=== PATIENT | male | born 1940 | race Asian ===

== ENCOUNTER 2023-10-19 14:26 | Inpatient (IN) | payer OTHER, MEDICAID ==
[~2023-10-19] VITALS: Ht 175.3 cm; Wt 59.9 kg
[2023-10-19 14:31] VITALS: BP 174/78; PULSE 89; RESP 21; TEMP 97.7; O2SAT 98
[2023-10-19] MEDS ORDERED: DEXTROSE 50% 50 ML SYR IVP ONE (14:35)
[2023-10-19 15:11] LABS: BASOPHILS # (AUTO) 0.1 K/uL (0.00-0.22); BASOPHILS % (AUTO) 1.1 % (0.0-2.0); EOSINOPHILS # (AUTO) 0.1 K/uL (0-0.4); EOSINOPHILS % (AUTO) 0.6 % (0.0-4.0); HEMATOCRIT 33.2 % (36-52); HEMOGLOBIN 11.5 g/dL (12.0-18.0); LYMPHOCYTES # (AUTO) 1.6 K/uL (2.0-11.5); LYMPHOCYTES % (AUTO) 17.1 % (20.5-51.1); MEAN CORPUSCULAR HEMOGLOBIN 31 pg (27-31); MEAN CORPUSCULAR HGB CONC 35 g/dL (33-37); MEAN CORPUSCULAR VOLUME 87.8 fL (80-94); MONOCYTES # (AUTO) 0.6 K/uL (0.8-1.0); MONOCYTES % (AUTO) 6.5 % (1.7-9.3); NEUTROPHILS # (AUTO) 7.1 K/uL (1.8-7.7); NEUTROPHILS % (AUTO) 74.7 % (42.2-75.2); PLATELET COUNT (AUTO) 333 K/uL (140-450); RED BLOOD CELL COUNT(AUTO) 3.79 MIL/uL (4.20-6.10); RED CELL DISTRIBUTION WIDTH 13.7 % (11.6-13.7); WHITE BLOOD COUNT (AUTO) 9.4 K/uL (4.8-10.8)
[2023-10-19 15:32] LABS: ALANINE AMINOTRANSFERASE 116 U/L (12-78); ALBUMIN 2.6 g/dL (3.4-5.0); ALKALINE PHOSPHATASE 296 U/L (50-136); ASPARTATE AMINOTRANSFERASE 32 U/L (15-37); BILIRUBIN,DIRECT 0.3 mg/dL (0.0-0.3); CREATINE KINASE, TOTAL 38 U/L (39-308); LIPASE 72 U/L (16-77); TOTAL BILIRUBIN 0.6 mg/dL (0.0-1.0); TOTAL PROTEIN, SERUM 7.9 g/dL (6.4-8.2)
[2023-10-19 15:36] LABS: LACTIC ACID 1.1 mmol/L (0.4-2.0)
[2023-10-19 15:43] LABS: ANION GAP 14.7 (8-16); CALCIUM 8.8 mg/dL (8.5-10.1); CARBON DIOXIDE 24.6 mmol/L (21-32); CHLORIDE 102 mmol/L (98-107); CREATININE 2.2 mg/dL (0.6-1.3); POTASSIUM 4.3 mmol/L (3.5-5.1); SODIUM SERUM 137 mmol/L (136-145); UREA NITROGEN, BLOOD 24 mg/dL (7-18)
[2023-10-19 15:45] LABS: GLUCOSE 37 mg/dL (74-106)
[2023-10-19 15:49] LABS: INR 1.54 (0.8-1.2); PARTIAL THROMBOPLASTIN TIME 30.7 secs (22-35.6); PROTHROMBIN TIME 15.9 secs (10.8-13.4)
[2023-10-19] MEDS ORDERED: DOCU-300 PO (16:52)
[2023-10-19] MEDS ORDERED: GLIM2TAB PO (16:52)
[2023-10-19] MEDS ORDERED: CALC-52 PO (16:52)
[2023-10-19] MEDS ORDERED: METF-1243 PO (16:52)
[2023-10-19] MEDS ORDERED: LINE600T10 PO (16:52)
[2023-10-19] MEDS ORDERED: CHOL100013 PO (16:52)
[2023-10-19] MEDS ORDERED: ASPI-1822 PO (16:52)
[2023-10-19] MEDS ORDERED: AMLO2.5T2 PO (16:52)
[2023-10-19] MEDS ORDERED: ATOR40TA40 PO (16:52)
[2023-10-19] MEDS ORDERED: FERR-13 PO (16:52)
[2023-10-19] MEDS ORDERED: SITA50TA3 PO (16:52)
[2023-10-19] MEDS ORDERED: BUS5 PO (16:52)
[2023-10-19] MEDS ORDERED: NUTR887L PO (16:52)
[2023-10-19] MEDS ORDERED: MULT-1305 PO (16:52)
[2023-10-19] MEDS ORDERED: ONDANSETRON 4 MG/2 ML VIAL IVP PRN (17:05)
[2023-10-19] MEDS ORDERED: MORPHINE SULFATE 2 MG/ML SYR IVP PRN (17:05)
[2023-10-19] MEDS ORDERED: MAG SULF 2000 MG/WATER PREMIX 50 ML IV PRN (17:05)
[2023-10-19] MEDS ORDERED: HYDROcodone/APAP 5/325 MG 1 TAB TAB PO PRN (17:05)
[2023-10-19] MEDS ORDERED: ACETAMINOPHEN 325 MG TAB PO PRN (17:05)
[2023-10-19] MEDS ORDERED: POLYETHYLENE GLYCOL 17 GM/PKT PO PRN (17:05)
[2023-10-19] MEDS ORDERED: POTASSIUM CHLORIDE 10 MEQ TABER PO PRN (17:05)
[2023-10-19] MEDS ORDERED: MELATONIN 3 MG TAB PO PRN (17:05)
[2023-10-19] MEDS ORDERED: INSULIN LISPRO SLIDING SCALE 100 UNITS/ML VIAL SUBQ PRN (17:10)
[2023-10-19] MEDS: LORazepam 1 MG TAB PO ONE (17:42)
[2023-10-19] MEDS: DEXTROSE 50% 50 ML SYR IVP ONE (18:20)
[2023-10-19] MEDS: NACL 0.9% 1,000 ML IV SCH (18:21)
[2023-10-19 20:00] VITALS: BP 162/67; PULSE 83; PULSE 88; RESP 19; TEMP 96.8; O2SAT 98
[2023-10-19] MEDS ORDERED: busPIRone 5 MG TAB PO SCH (21:00)
[2023-10-19] MEDS: LINEZOLID 600 MG TAB PO SCH (21:30)
[2023-10-19] MEDS: DOCUSATE SODIUM 100 MG GELCAP PO SCH (21:30)
[2023-10-19] MEDS: DEXTROSE 50% 50 ML SYR IVP PRN (21:36)
[2023-10-19] MEDS: BLOOD GLUCOSE MONITORING 1 DEV DEV FS SCH (21:44)
[2023-10-19] MEDS: DEXT 5% /NACL 0.9% 1,000 ML IV SCH (23:15)
[2023-10-20] VITALS (7 sets, daily range): BP systolic 110–191; BP diastolic 62–85; PULSE 62–105; RESP 18–19; TEMP 96.8–98.1; O2SAT 98–100
[2023-10-20] MEDS: hydrALAZINE 20 MG/ML VIAL IVP PRN (04:04)
[2023-10-20 05:34] LABS: BASOPHILS % (AUTO) 0.5 % (0.0-2.0); EOSINOPHILS # (AUTO) 0.1 K/uL (0-0.4); EOSINOPHILS % (AUTO) 1.5 % (0.0-4.0); HEMATOCRIT 30.3 % (36-52); HEMOGLOBIN 10.5 g/dL (12.0-18.0); LYMPHOCYTES # (AUTO) 1.7 K/uL (2.0-11.5); LYMPHOCYTES % (AUTO) 20.8 % (20.5-51.1); MEAN CORPUSCULAR HEMOGLOBIN 31 pg (27-31); MEAN CORPUSCULAR HGB CONC 35 g/dL (33-37); MEAN CORPUSCULAR VOLUME 88.1 fL (80-94); MONOCYTES # (AUTO) 0.7 K/uL (0.8-1.0); NEUTROPHILS # (AUTO) 5.8 K/uL (1.8-7.7); NEUTROPHILS % (AUTO) 69.2 % (42.2-75.2); PLATELET COUNT (AUTO) 298 K/uL (140-450); RED BLOOD CELL COUNT(AUTO) 3.45 MIL/uL (4.20-6.10); RED CELL DISTRIBUTION WIDTH 13.5 % (11.6-13.7); WHITE BLOOD COUNT (AUTO) 8.4 K/uL (4.8-10.8)
[2023-10-20 06:38] LABS: ALANINE AMINOTRANSFERASE 98 U/L (12-78); ALBUMIN 2.3 g/dL (3.4-5.0); ALKALINE PHOSPHATASE 251 U/L (50-136); ANION GAP 10.4 (8-16); ASPARTATE AMINOTRANSFERASE 29 U/L (15-37); CALCIUM 8.5 mg/dL (8.5-10.1); CARBON DIOXIDE 25.9 mmol/L (21-32); CHLORIDE 105 mmol/L (98-107); CREATININE 1.9 mg/dL (0.6-1.3); GLUCOSE 72 mg/dL (74-106); MAGNESIUM 2.2 mg/dL (1.8-2.4); PHOSPHORUS 3.7 mg/dL (2.5-4.9); POTASSIUM 4.3 mmol/L (3.5-5.1); SODIUM SERUM 137 mmol/L (136-145); TOTAL BILIRUBIN 0.6 mg/dL (0.0-1.0); TOTAL PROTEIN, SERUM 7.1 g/dL (6.4-8.2); UREA NITROGEN, BLOOD 19 mg/dL (7-18)
[2023-10-20] MEDS: ASPIRIN 81 MG TAB.CHEW PO SCH (08:34)
[2023-10-20] MEDS: FERROUS SULFATE 325 MG TABEC PO SCH (08:35)
[2023-10-20] MEDS: amLODIPine 5 MG TAB PO SCH (08:36)
[2023-10-20] MEDS: ATORVASTATIN 20 MG TAB PO SCH (08:41)
[2023-10-20] MEDS ORDERED: NON-FORMULARY ITEM (Atorvastatin Calcium 1 TAB) PO SCH (09:00)
[2023-10-20] MEDS ORDERED: AMLODIPINE BESYLATE 2.5 MG PO SCH (09:00)
[2023-10-20 20:18] LABS: APPEARANCE,URINE CLEAR (CLEAR); BILIRUBIN,URINE NEGATIVE (NEGATIVE); BLOOD, URINE NEGATIVE (NEGATIVE); COLOR,URINE YELLOW (YELLOW); LEUKOCYTE ESTERASE ,URINE NEGATIVE (NEGATIVE); NITRITE, URINE NEGATIVE (NEGATIVE); PROTEIN,URINE 2+ (NEGATIVE); UGLUCOSE 1+ (NEGATIVE); UROBILINOGEN,URINE 0.2 EU/dL (0.2 - 1)
[2023-10-21] VITALS: PULSE 122
[2023-10-21 04:08] VITALS: PULSE 102
[2023-10-21 05:50] LABS: BASOPHILS # (AUTO) 0.1 K/uL (0.00-0.22); BASOPHILS % (AUTO) 0.4 % (0.0-2.0); EOSINOPHILS % (AUTO) 0.1 % (0.0-4.0); HEMATOCRIT 31.2 % (36-52); HEMOGLOBIN 10.8 g/dL (12.0-18.0); LYMPHOCYTES # (AUTO) 1.4 K/uL (2.0-11.5); LYMPHOCYTES % (AUTO) 9.4 % (20.5-51.1); MEAN CORPUSCULAR HEMOGLOBIN 31 pg (27-31); MEAN CORPUSCULAR HGB CONC 35 g/dL (33-37); MEAN CORPUSCULAR VOLUME 88.1 fL (80-94); MONOCYTES # (AUTO) 0.8 K/uL (0.8-1.0); MONOCYTES % (AUTO) 5.3 % (1.7-9.3); NEUTROPHILS # (AUTO) 12.5 K/uL (1.8-7.7); NEUTROPHILS % (AUTO) 84.8 % (42.2-75.2); PLATELET COUNT (AUTO) 308 K/uL (140-450); RED BLOOD CELL COUNT(AUTO) 3.54 MIL/uL (4.20-6.10); RED CELL DISTRIBUTION WIDTH 13.7 % (11.6-13.7); WHITE BLOOD COUNT (AUTO) 14.7 K/uL (4.8-10.8)
[2023-10-21 05:57] LABS: ALANINE AMINOTRANSFERASE 973 U/L (12-78); ALBUMIN 2.3 g/dL (3.4-5.0); ALKALINE PHOSPHATASE 669 U/L (50-136); ANION GAP 10.3 (8-16); ASPARTATE AMINOTRANSFERASE 827 U/L (15-37); CALCIUM 8.4 mg/dL (8.5-10.1); CHLORIDE 103 mmol/L (98-107); CREATININE 2.2 mg/dL (0.6-1.3); GLUCOSE 218 mg/dL (74-106); MAGNESIUM 2.1 mg/dL (1.8-2.4); PHOSPHORUS 3.4 mg/dL (2.5-4.9); POTASSIUM 4.3 mmol/L (3.5-5.1); SODIUM SERUM 136 mmol/L (136-145); TOTAL BILIRUBIN 2.8 mg/dL (0.0-1.0); UREA NITROGEN, BLOOD 21 mg/dL (7-18)
[2023-10-21 08:00] VITALS: BP 152/66; PULSE 80; RESP 17; RESP 19; TEMP 98; O2SAT 97
[2023-10-21] MEDS: amLODIPine 5 MG TAB PO SCH (09:37)
[2023-10-21 12:00] VITALS: BP 166/68; PULSE 81; PULSE 85; RESP 19; TEMP 97; O2SAT 97
[2023-10-21 12:29] LABS: BASOPHILS # (AUTO) 0.1 K/uL (0.00-0.22); BASOPHILS % (AUTO) 0.7 % (0.0-2.0); EOSINOPHILS # (AUTO) 0.1 K/uL (0-0.4); EOSINOPHILS % (AUTO) 1.1 % (0.0-4.0); HEMATOCRIT 30.8 % (36-52); HEMOGLOBIN 10.9 g/dL (12.0-18.0); LYMPHOCYTES # (AUTO) 1.6 K/uL (2.0-11.5); LYMPHOCYTES % (AUTO) 13.6 % (20.5-51.1); MEAN CORPUSCULAR HEMOGLOBIN 31 pg (27-31); MEAN CORPUSCULAR HGB CONC 35 g/dL (33-37); MEAN CORPUSCULAR VOLUME 87.3 fL (80-94); MONOCYTES # (AUTO) 0.7 K/uL (0.8-1.0); NEUTROPHILS # (AUTO) 9.4 K/uL (1.8-7.7); NEUTROPHILS % (AUTO) 78.6 % (42.2-75.2); PLATELET COUNT (AUTO) 321 K/uL (140-450); RED BLOOD CELL COUNT(AUTO) 3.52 MIL/uL (4.20-6.10); RED CELL DISTRIBUTION WIDTH 13.9 % (11.6-13.7)
[2023-10-21 12:47] LABS: ALANINE AMINOTRANSFERASE 829 U/L (12-78); ALBUMIN 2.4 g/dL (3.4-5.0); ALKALINE PHOSPHATASE 672 U/L (50-136); ANION GAP 11.5 (8-16); ASPARTATE AMINOTRANSFERASE 527 U/L (15-37); CALCIUM 8.5 mg/dL (8.5-10.1); CARBON DIOXIDE 25.9 mmol/L (21-32); CHLORIDE 103 mmol/L (98-107); CREATININE 2.3 mg/dL (0.6-1.3); GLUCOSE 154 mg/dL (74-106); POTASSIUM 4.4 mmol/L (3.5-5.1); SODIUM SERUM 136 mmol/L (136-145); TOTAL BILIRUBIN 3.6 mg/dL (0.0-1.0); TOTAL PROTEIN, SERUM 7.1 g/dL (6.4-8.2); UREA NITROGEN, BLOOD 23 mg/dL (7-18)
[2023-10-21] MEDS: DEXT 5% / NACL 0.45% 1,000 ML IV SCH (14:26)
[2023-10-21 16:00] VITALS: BP 151/63; PULSE 70; PULSE 74; RESP 18; TEMP 97.8; O2SAT 97
[2023-10-21 20:00] VITALS: BP 147/89; PULSE 78; RESP 19; TEMP 97.6; O2SAT 94
[2023-10-22 04:00] VITALS: BP 175/86; PULSE 67; RESP 19; TEMP 97.8; O2SAT 96
[2023-10-22] MEDS: hydrALAZINE 20 MG/ML VIAL IVP PRN (04:18)
[2023-10-22 05:36] LABS: BASOPHILS # (AUTO) 0.1 K/uL (0.00-0.22); BASOPHILS % (AUTO) 0.8 % (0.0-2.0); EOSINOPHILS # (AUTO) 0.3 K/uL (0-0.4); EOSINOPHILS % (AUTO) 3.7 % (0.0-4.0); HEMATOCRIT 29.6 % (36-52); HEMOGLOBIN 10.4 g/dL (12.0-18.0); LYMPHOCYTES # (AUTO) 1.3 K/uL (2.0-11.5); LYMPHOCYTES % (AUTO) 15.8 % (20.5-51.1); MEAN CORPUSCULAR HEMOGLOBIN 31 pg (27-31); MEAN CORPUSCULAR HGB CONC 35 g/dL (33-37); MEAN CORPUSCULAR VOLUME 87.5 fL (80-94); MONOCYTES # (AUTO) 0.6 K/uL (0.8-1.0); NEUTROPHILS # (AUTO) 6.1 K/uL (1.8-7.7); NEUTROPHILS % (AUTO) 72.7 % (42.2-75.2); PLATELET COUNT (AUTO) 286 K/uL (140-450); RED BLOOD CELL COUNT(AUTO) 3.38 MIL/uL (4.20-6.10); RED CELL DISTRIBUTION WIDTH 13.9 % (11.6-13.7); WHITE BLOOD COUNT (AUTO) 8.4 K/uL (4.8-10.8)
[2023-10-22 06:22] LABS: ALANINE AMINOTRANSFERASE 554 U/L (12-78); ALBUMIN 2.2 g/dL (3.4-5.0); ALKALINE PHOSPHATASE 631 U/L (50-136); ANION GAP 12.2 (8-16); ASPARTATE AMINOTRANSFERASE 242 U/L (15-37); CALCIUM 8.5 mg/dL (8.5-10.1); CARBON DIOXIDE 22.8 mmol/L (21-32); CHLORIDE 103 mmol/L (98-107); GLUCOSE 159 mg/dL (74-106); MAGNESIUM 2.1 mg/dL (1.8-2.4); PHOSPHORUS 2.6 mg/dL (2.5-4.9); SODIUM SERUM 134 mmol/L (136-145); TOTAL BILIRUBIN 3.1 mg/dL (0.0-1.0); TOTAL PROTEIN, SERUM 6.7 g/dL (6.4-8.2); UREA NITROGEN, BLOOD 21 mg/dL (7-18)
[2023-10-22 07:51] VITALS: PULSE 82; RESP 20
[2023-10-22 08:00] VITALS: BP 140/71; PULSE 68; RESP 20; TEMP 96.5; O2SAT 96
[2023-10-22 12:00] VITALS: BP 142/68; PULSE 72; RESP 22; TEMP 98.2; O2SAT 97
[2023-10-22 16:00] VITALS: BP 134/76; PULSE 84; RESP 20; TEMP 97.2; O2SAT 98
[2023-10-22 20:00] VITALS: BP 158/76; PULSE 87; RESP 18; TEMP 97.9; O2SAT 97
[2023-10-22] MEDS: LORazepam 2 MG/ML VIAL IVP PRN (20:25)
[2023-10-23 04:00] VITALS: BP 146/79; PULSE 84; RESP 18; TEMP 98.1; O2SAT 96
[2023-10-23 06:18] LABS: BASOPHILS % (AUTO) 0.4 % (0.0-2.0); EOSINOPHILS # (AUTO) 0.4 K/uL (0-0.4); EOSINOPHILS % (AUTO) 4.9 % (0.0-4.0); HEMATOCRIT 29.8 % (36-52); HEMOGLOBIN 10.4 g/dL (12.0-18.0); LYMPHOCYTES # (AUTO) 1.5 K/uL (2.0-11.5); LYMPHOCYTES % (AUTO) 17.4 % (20.5-51.1); MEAN CORPUSCULAR HEMOGLOBIN 31 pg (27-31); MEAN CORPUSCULAR HGB CONC 35 g/dL (33-37); MEAN CORPUSCULAR VOLUME 87.7 fL (80-94); MONOCYTES # (AUTO) 0.6 K/uL (0.8-1.0); MONOCYTES % (AUTO) 7.6 % (1.7-9.3); NEUTROPHILS # (AUTO) 5.9 K/uL (1.8-7.7); NEUTROPHILS % (AUTO) 69.7 % (42.2-75.2); PLATELET COUNT (AUTO) 300 K/uL (140-450); RED CELL DISTRIBUTION WIDTH 13.5 % (11.6-13.7); WHITE BLOOD COUNT (AUTO) 8.5 K/uL (4.8-10.8)
[2023-10-23 06:44] LABS: ALANINE AMINOTRANSFERASE 377 U/L (12-78); ALBUMIN 2.3 g/dL (3.4-5.0); ALKALINE PHOSPHATASE 648 U/L (50-136); ANION GAP 12.7 (8-16); ASPARTATE AMINOTRANSFERASE 102 U/L (15-37); CALCIUM 8.6 mg/dL (8.5-10.1); CARBON DIOXIDE 24.5 mmol/L (21-32); CHLORIDE 101 mmol/L (98-107); CREATININE 1.9 mg/dL (0.6-1.3); GLUCOSE 128 mg/dL (74-106); MAGNESIUM 2.1 mg/dL (1.8-2.4); PHOSPHORUS 3.5 mg/dL (2.5-4.9); POTASSIUM 4.2 mmol/L (3.5-5.1); SODIUM SERUM 134 mmol/L (136-145); TOTAL BILIRUBIN 1.2 mg/dL (0.0-1.0); UREA NITROGEN, BLOOD 19 mg/dL (7-18)
[2023-10-23 08:00] VITALS: BP 184/75; PULSE 91; RESP 20; TEMP 98.1; O2SAT 96
[2023-10-23 11:57] VITALS: BP 148/60; PULSE 65; RESP 20; TEMP 98.9; O2SAT 98
[2023-10-23 16:00] VITALS: BP 156/83; PULSE 101; RESP 20; TEMP 97.8; O2SAT 97
[2023-10-23 20:00] VITALS: BP 138/62; PULSE 78; RESP 20; TEMP 98.7; O2SAT 100
[2023-10-24 04:00] VITALS: BP 150/78; PULSE 69; RESP 21; TEMP 98.5; O2SAT 100
[2023-10-24 05:39] LABS: BASOPHILS # (AUTO) 0.1 K/uL (0.00-0.22); BASOPHILS % (AUTO) 0.7 % (0.0-2.0); EOSINOPHILS # (AUTO) 0.4 K/uL (0-0.4); HEMATOCRIT 31.3 % (36-52); LYMPHOCYTES # (AUTO) 2.1 K/uL (2.0-11.5); LYMPHOCYTES % (AUTO) 24.2 % (20.5-51.1); MEAN CORPUSCULAR HEMOGLOBIN 31 pg (27-31); MEAN CORPUSCULAR HGB CONC 35 g/dL (33-37); MONOCYTES # (AUTO) 0.6 K/uL (0.8-1.0); MONOCYTES % (AUTO) 7.2 % (1.7-9.3); NEUTROPHILS # (AUTO) 5.5 K/uL (1.8-7.7); NEUTROPHILS % (AUTO) 62.9 % (42.2-75.2); PLATELET COUNT (AUTO) 288 K/uL (140-450); RED CELL DISTRIBUTION WIDTH 13.5 % (11.6-13.7); WHITE BLOOD COUNT (AUTO) 8.7 K/uL (4.8-10.8)
[2023-10-24 06:56] LABS: ALANINE AMINOTRANSFERASE 276 U/L (12-78); ALBUMIN 2.3 g/dL (3.4-5.0); ALKALINE PHOSPHATASE 587 U/L (50-136); ANION GAP 12.7 (8-16); ASPARTATE AMINOTRANSFERASE 64 U/L (15-37); CALCIUM 8.6 mg/dL (8.5-10.1); CARBON DIOXIDE 25.4 mmol/L (21-32); CHLORIDE 102 mmol/L (98-107); CREATININE 1.8 mg/dL (0.6-1.3); GLUCOSE 131 mg/dL (74-106); PHOSPHORUS 4.1 mg/dL (2.5-4.9); POTASSIUM 4.1 mmol/L (3.5-5.1); SODIUM SERUM 136 mmol/L (136-145); TOTAL BILIRUBIN 0.8 mg/dL (0.0-1.0); TOTAL PROTEIN, SERUM 7.2 g/dL (6.4-8.2); UREA NITROGEN, BLOOD 21 mg/dL (7-18)
[2023-10-24 08:00] VITALS: BP 155/93; PULSE 81; RESP 17; TEMP 97.5; O2SAT 100
[2023-10-24 12:00] VITALS: BP 155/93; PULSE 81; RESP 17; TEMP 97.5; O2SAT 100
[2023-10-24] MEDS: INSULIN LISPRO SLIDING SCALE 100 UNITS/ML VIAL SUBQ PRN (12:11)
[2023-10-24 16:00] VITALS: BP 157/76; PULSE 86; RESP 18; TEMP 98.2; O2SAT 96
[2023-10-24 20:00] VITALS: BP 111/63; PULSE 78; PULSE 83; RESP 20; TEMP 98.2; O2SAT 100
[2023-10-25 05:43] LABS: BASOPHILS # (AUTO) 0.1 K/uL (0.00-0.22); BASOPHILS % (AUTO) 0.7 % (0.0-2.0); EOSINOPHILS # (AUTO) 0.3 K/uL (0-0.4); EOSINOPHILS % (AUTO) 3.5 % (0.0-4.0); HEMATOCRIT 31.6 % (36-52); HEMOGLOBIN 11.1 g/dL (12.0-18.0); LYMPHOCYTES # (AUTO) 1.9 K/uL (2.0-11.5); LYMPHOCYTES % (AUTO) 19.5 % (20.5-51.1); MEAN CORPUSCULAR HEMOGLOBIN 31 pg (27-31); MEAN CORPUSCULAR HGB CONC 35 g/dL (33-37); MEAN CORPUSCULAR VOLUME 87.4 fL (80-94); MONOCYTES # (AUTO) 0.8 K/uL (0.8-1.0); MONOCYTES % (AUTO) 8.6 % (1.7-9.3); NEUTROPHILS # (AUTO) 6.5 K/uL (1.8-7.7); NEUTROPHILS % (AUTO) 67.7 % (42.2-75.2); PLATELET COUNT (AUTO) 271 K/uL (140-450); RED BLOOD CELL COUNT(AUTO) 3.62 MIL/uL (4.20-6.10); RED CELL DISTRIBUTION WIDTH 13.5 % (11.6-13.7); WHITE BLOOD COUNT (AUTO) 9.6 K/uL (4.8-10.8)
[2023-10-25 06:24] LABS: ALANINE AMINOTRANSFERASE 225 U/L (12-78); ALBUMIN 2.3 g/dL (3.4-5.0); ALKALINE PHOSPHATASE 509 U/L (50-136); ANION GAP 12.5 (8-16); ASPARTATE AMINOTRANSFERASE 59 U/L (15-37); CALCIUM 9.2 mg/dL (8.5-10.1); CARBON DIOXIDE 25.6 mmol/L (21-32); CHLORIDE 102 mmol/L (98-107); CREATININE 1.8 mg/dL (0.6-1.3); GLUCOSE 159 mg/dL (74-106); MAGNESIUM 2.1 mg/dL (1.8-2.4); PHOSPHORUS 4.2 mg/dL (2.5-4.9); POTASSIUM 4.1 mmol/L (3.5-5.1); SODIUM SERUM 136 mmol/L (136-145); TOTAL BILIRUBIN 0.8 mg/dL (0.0-1.0); TOTAL PROTEIN, SERUM 7.2 g/dL (6.4-8.2); UREA NITROGEN, BLOOD 23 mg/dL (7-18)
[2023-10-25 08:00] VITALS: BP 140/70; PULSE 70; RESP 19; RESP 20; TEMP 97.5; O2SAT 98
[2023-10-25] MEDS ORDERED: AMLO-3 PO (12:03)
== END 2023-10-25 16:20 | DRG 637 ==
LOC: MED 14:26 → MTU 17:02
PROVIDERS: ADMIT Family Medicine; ATTEND Family Medicine
DX: E11.649 Type 2 diabetes mellitus with hypoglycemia without coma (principal); G93.41 Metabolic encephalopathy; N39.0 Urinary tract infection, site not specified; N18.9 Chronic kidney disease, unspecified; Z20.822 Contact with and (suspected) exposure to COVID-19; T50.995A Adverse effect of other drugs, medicaments and biological substances, initial encounter; E11.22 Type 2 diabetes mellitus with diabetic chronic kidney disease; F03.90 Unspecified dementia, unspecified severity, without behavioral disturbance, psychotic disturbance, mood disturbance, and anxiety; Y92.89 Other specified places as the place of occurrence of the external cause; Z86.73 Personal history of transient ischemic attack (TIA), and cerebral infarction without residual deficits
CPT/HCPCS: 36415; 70450; 71045; 76705; 76770; 80048; 80053; 80076; 81003; 82140; 82550; 82948; 83036; 83605; 83690; 83735; 83880; 84100; 84484; 85025; 85610; 85730; 87040; 87081; 87086; 92526; 93005; 96361; 96374; 97116; 97163-GP; 99291; J0360; J1644; J1815; J2060; Q0092

== ENCOUNTER 2023-12-21 23:09 | Inpatient (IN) | payer OTHER, MEDICAID ==
[~2023-12-21] VITALS: Ht 167.6 cm; Wt 77.1 kg
[~2023-12-21 23:09] MED LIST: AMLO-3 PO; ASPI-1822 PO; BUS5 PO; CALC-52 PO; CHOL100013 PO; DOCU-300 PO; FERR-13 PO; MULT-1305 PO; NUTR887L PO
[2023-12-21] MEDS ORDERED: cefTRIAXone 1,000 MG VIAL ONE (23:34)
[2023-12-21 23:42] VITALS: BP 113/47; PULSE 122; RESP 32; TEMP 101; O2SAT 86
[2023-12-21] MEDS: NACL 0.9% 2,000 ML IV ONE (23:42)
[2023-12-21] MEDS ORDERED: ACETAMINOPHEN 650 MG SUPP RC ONE (23:55)
[2023-12-22] VITALS (10 sets, daily range): BP systolic 132–154; BP diastolic 49–68; PULSE 69–126; RESP 16–22; TEMP 98.1–98.8; O2SAT 92–100
[2023-12-22] LABS: BASOPHILS % (AUTO) 0.2 % (0.0-2.0); HEMATOCRIT 28.8 % (36-52); HEMOGLOBIN 9.7 g/dL (12.0-18.0); LYMPHOCYTES # (AUTO) 2.2 K/uL (2.0-11.5); LYMPHOCYTES % (AUTO) 13.8 % (20.5-51.1); MEAN CORPUSCULAR HEMOGLOBIN 30 pg (27-31); MEAN CORPUSCULAR HGB CONC 34 g/dL (33-37); MEAN CORPUSCULAR VOLUME 87.3 fL (80-94); MONOCYTES # (AUTO) 0.5 K/uL (0.8-1.0); MONOCYTES % (AUTO) 3.2 % (1.7-9.3); NEUTROPHILS # (AUTO) 13.5 K/uL (1.8-7.7); NEUTROPHILS % (AUTO) 82.8 % (42.2-75.2); PLATELET COUNT (AUTO) 279 K/uL (140-450); RED CELL DISTRIBUTION WIDTH 13.9 % (11.6-13.7); WHITE BLOOD COUNT (AUTO) 16.3 K/uL (4.8-10.8)
[2023-12-22] MEDS ORDERED: AZITHROMYCIN 500 MG INJ VIAL IV ONE (00:11)
[2023-12-22 00:19] LABS: ANION GAP 14.7 (8-16); CALCIUM 8.7 mg/dL (8.5-10.1); CHLORIDE 91 mmol/L (98-107); CREATININE 3.2 mg/dL (0.6-1.3); GLUCOSE 249 mg/dL (74-106); POTASSIUM 4.7 mmol/L (3.5-5.1); SODIUM SERUM 126 mmol/L (136-145)
[2023-12-22 00:23] LABS: UREA NITROGEN, BLOOD 78 mg/dL (7-18)
[2023-12-22 00:28] LABS: ALANINE AMINOTRANSFERASE 208 U/L (12-78); ALBUMIN 2.1 g/dL (3.4-5.0); ALKALINE PHOSPHATASE 410 U/L (50-136); ASPARTATE AMINOTRANSFERASE 93 U/L (15-37); BILIRUBIN,DIRECT 0.4 mg/dL (0.0-0.3); TOTAL BILIRUBIN 0.9 mg/dL (0.0-1.0); TOTAL PROTEIN, SERUM 7.3 g/dL (6.4-8.2)
[2023-12-22] MEDS: AZITHROMYCIN 500 MG in DEXTROSE 5% 250 ML IV ONE (00:42)
[2023-12-22] MEDS: ACETAMINOPHEN 650 MG/20.3 ML UDC GT ONE (00:42)
[2023-12-22] MEDS: NACL 0.9% 500 ML IV ONE (00:45)
[2023-12-22 00:50] LABS: FLU A ANTIGEN negative (NEGATIVE); FLU B ANTIGEN NEGATIVE (NEGATIVE)
[2023-12-22] MEDS ORDERED: LOSA-272 GT (01:36)
[2023-12-22] MEDS ORDERED: SITA50TA3 GT (01:36)
[2023-12-22] MEDS ORDERED: BUS5 GT (01:36)
[2023-12-22] MEDS ORDERED: AMLO10TA GT (01:36)
[2023-12-22] MEDS ORDERED: GLIM1TAB GT (01:36)
[2023-12-22] MEDS ORDERED: METO50TE2 GT (01:36)
[2023-12-22] MEDS ORDERED: KEP500L GT (01:36)
[2023-12-22] MEDS ORDERED: ACETAMINOPHEN 325 MG TAB PO PRN (03:15)
[2023-12-22] MEDS ORDERED: HYDROcodone/APAP 5/325 MG 1 TAB TAB PO PRN (03:15)
[2023-12-22] MEDS ORDERED: remdesivir COMMUNICATION ORDER 1 EA MISC MC PRN (03:25)
[2023-12-22 03:45] LABS: INR 0.96 (0.8-1.2); PARTIAL THROMBOPLASTIN TIME 34.4 secs (22-35.6); PROTHROMBIN TIME 10.1 secs (10.8-13.4)
[2023-12-22] MEDS: CEFEPIME 1,000 MG VIAL ONE (05:03)
[2023-12-22] MEDS: CEFEPIME 2,000 MG in DEXTROSE 5% 100 ML IV SCH (05:04)
[2023-12-22] MEDS ORDERED: remdesivir CLINICAL MONITORING 1 EA MISC MC PRN (09:00)
[2023-12-22] MEDS: DEXAMETHASONE 4 MG TAB PO SCH (09:00)
[2023-12-22] MEDS: REMDESIVIR. 200 MG in NACL 0.9% 100 ML IV SCH (09:15)
[2023-12-22] MEDS: LACTATED RINGERS 1,000 ML IV SCH (09:15)
[2023-12-22] MEDS: ENOXAPARIN 30 MG/0.3 ML SYR SUBQ SCH (09:19)
[2023-12-22 09:51] LABS: BASOPHILS % (AUTO) 0.2 % (0.0-2.0); HEMATOCRIT 23.8 % (36-52); HEMOGLOBIN 8.1 g/dL (12.0-18.0); LYMPHOCYTES # (AUTO) 1.1 K/uL (2.0-11.5); LYMPHOCYTES % (AUTO) 9.8 % (20.5-51.1); MEAN CORPUSCULAR HEMOGLOBIN 30 pg (27-31); MEAN CORPUSCULAR HGB CONC 34 g/dL (33-37); MEAN CORPUSCULAR VOLUME 88.8 fL (80-94); MONOCYTES # (AUTO) 0.5 K/uL (0.8-1.0); MONOCYTES % (AUTO) 4.8 % (1.7-9.3); NEUTROPHILS # (AUTO) 9.2 K/uL (1.8-7.7); NEUTROPHILS % (AUTO) 85.2 % (42.2-75.2); PLATELET COUNT (AUTO) 208 K/uL (140-450); RED BLOOD CELL COUNT(AUTO) 2.68 MIL/uL (4.20-6.10); RED CELL DISTRIBUTION WIDTH 14.2 % (11.6-13.7); WHITE BLOOD COUNT (AUTO) 10.8 K/uL (4.8-10.8)
[2023-12-22 11:19] LABS: ANION GAP 15.7 (8-16); CALCIUM 8.3 mg/dL (8.5-10.1); CARBON DIOXIDE 23.5 mmol/L (21-32); CHLORIDE 100 mmol/L (98-107); CREATININE 2.8 mg/dL (0.6-1.3); GLUCOSE 198 mg/dL (74-106); POTASSIUM 4.2 mmol/L (3.5-5.1); SODIUM SERUM 135 mmol/L (136-145)
[2023-12-22 11:30] LABS: UREA NITROGEN, BLOOD 72 mg/dL (7-18)
[2023-12-22] MEDS: AZITHROMYCIN 500 MG in DEXTROSE 5% 250 ML IV SCH (20:39)
[2023-12-22] MEDS: ENOXAPARIN 40 MG/0.4 ML SYR SUBQ SCH (20:46)
[2023-12-23] VITALS (9 sets, daily range): BP systolic 138–161; BP diastolic 61–76; PULSE 100–121; RESP 16–22; TEMP 97.6–100; O2SAT 91–100
[2023-12-23 06:41] LABS: BASOPHILS % (AUTO) 0.1 % (0.0-2.0); HEMATOCRIT 24.1 % (36-52); HEMOGLOBIN 8.1 g/dL (12.0-18.0); LYMPHOCYTES # (AUTO) 1.3 K/uL (2.0-11.5); LYMPHOCYTES % (AUTO) 11.4 % (20.5-51.1); MEAN CORPUSCULAR HEMOGLOBIN 29 pg (27-31); MEAN CORPUSCULAR HGB CONC 33 g/dL (33-37); MEAN CORPUSCULAR VOLUME 87.6 fL (80-94); MONOCYTES # (AUTO) 0.7 K/uL (0.8-1.0); MONOCYTES % (AUTO) 6.1 % (1.7-9.3); NEUTROPHILS # (AUTO) 9.1 K/uL (1.8-7.7); NEUTROPHILS % (AUTO) 82.4 % (42.2-75.2); PLATELET COUNT (AUTO) 232 K/uL (140-450); RED BLOOD CELL COUNT(AUTO) 2.76 MIL/uL (4.20-6.10); RED CELL DISTRIBUTION WIDTH 14.3 % (11.6-13.7)
[2023-12-23 07:13] LABS: ALBUMIN 1.8 g/dL (3.4-5.0); BILIRUBIN,DIRECT 0.2 mg/dL (0.0-0.3); TOTAL BILIRUBIN 0.5 mg/dL (0.0-1.0); TOTAL PROTEIN, SERUM 6.7 g/dL (6.4-8.2)
[2023-12-23 07:15] LABS: ALANINE AMINOTRANSFERASE 109 U/L (12-78); ALBUMIN 1.8 g/dL (3.4-5.0); ALKALINE PHOSPHATASE 239 U/L (50-136); ANION GAP 15.9 (8-16); ASPARTATE AMINOTRANSFERASE 38 U/L (15-37); CALCIUM 8.4 mg/dL (8.5-10.1); CARBON DIOXIDE 23.3 mmol/L (21-32); CHLORIDE 103 mmol/L (98-107); CREATININE 2.4 mg/dL (0.6-1.3); GLUCOSE 147 mg/dL (74-106); MAGNESIUM 2.4 mg/dL (1.8-2.4); PHOSPHORUS 3.8 mg/dL (2.5-4.9); POTASSIUM 4.2 mmol/L (3.5-5.1); SODIUM SERUM 138 mmol/L (136-145); TOTAL BILIRUBIN 0.5 mg/dL (0.0-1.0); TOTAL PROTEIN, SERUM 6.8 g/dL (6.4-8.2); UREA NITROGEN, BLOOD 58 mg/dL (7-18)
[2023-12-23] MEDS: REMDESIVIR. 100 MG in NACL 0.9% 100 ML IV SCH (09:43)
[2023-12-24] VITALS (10 sets, daily range): BP systolic 135–153; BP diastolic 55–66; PULSE 78–111; RESP 18–22; TEMP 98.1–100; O2SAT 91–100
[2023-12-24 06:45] LABS: BASOPHILS % (AUTO) 0.1 % (0.0-2.0); HEMATOCRIT 22.7 % (36-52); HEMOGLOBIN 7.6 g/dL (12.0-18.0); LYMPHOCYTES % (AUTO) 8.7 % (20.5-51.1); MEAN CORPUSCULAR HEMOGLOBIN 29 pg (27-31); MEAN CORPUSCULAR HGB CONC 33 g/dL (33-37); MONOCYTES # (AUTO) 0.7 K/uL (0.8-1.0); MONOCYTES % (AUTO) 5.9 % (1.7-9.3); NEUTROPHILS # (AUTO) 9.8 K/uL (1.8-7.7); NEUTROPHILS % (AUTO) 85.3 % (42.2-75.2); PLATELET COUNT (AUTO) 239 K/uL (140-450); RED BLOOD CELL COUNT(AUTO) 2.58 MIL/uL (4.20-6.10); RED CELL DISTRIBUTION WIDTH 14.3 % (11.6-13.7); WHITE BLOOD COUNT (AUTO) 11.5 K/uL (4.8-10.8)
[2023-12-24 07:05] LABS: ALBUMIN 1.6 g/dL (3.4-5.0); BILIRUBIN,DIRECT 0.3 mg/dL (0.0-0.3); TOTAL BILIRUBIN 0.7 mg/dL (0.0-1.0); TOTAL PROTEIN, SERUM 6.6 g/dL (6.4-8.2)
[2023-12-24 07:09] LABS: ANION GAP 14.4 (8-16); CALCIUM 8.5 mg/dL (8.5-10.1); CARBON DIOXIDE 23.3 mmol/L (21-32); CHLORIDE 107 mmol/L (98-107); CREATININE 2.2 mg/dL (0.6-1.3); GLUCOSE 193 mg/dL (74-106); POTASSIUM 3.7 mmol/L (3.5-5.1); SODIUM SERUM 141 mmol/L (136-145); UREA NITROGEN, BLOOD 54 mg/dL (7-18)
[2023-12-24] MEDS: ENOXAPARIN 40 MG/0.4 ML SYR SUBQ SCH (09:02)
[2023-12-24] MEDS: MORPHINE SULFATE 2 MG/ML SYR IVP PRN (12:54)
[2023-12-25] VITALS (11 sets, daily range): BP systolic 138–168; BP diastolic 58–80; PULSE 7–97; RESP 18–21; TEMP 97.8–98.9; O2SAT 9–100
[2023-12-25 06:29] LABS: APPEARANCE,URINE SLIGHTLY CLOUDY (CLEAR); BILIRUBIN,URINE NEGATIVE (NEGATIVE); BLOOD, URINE 1+ (NEGATIVE); COLOR,URINE YELLOW (YELLOW); PROTEIN,URINE 2+ (NEGATIVE); UGLUCOSE TRACE (NEGATIVE)
[2023-12-25 06:30] LABS: LEUKOCYTE ESTERASE ,URINE 1+ (NEGATIVE); NITRITE, URINE NEGATIVE (NEGATIVE); UROBILINOGEN,URINE 0.2 EU/dL (0.2 - 1)
[2023-12-25 06:33] LABS: BACTERIA,URINE 1+ /HPF (None Seen); MUCUS,URINE None Seen /LPF (None Seen); RBC,URINE 0-5 /HPF (0-5); SQUAMOUS EPITHELIAL CELL,UR 0-3 (FEW) /LPF (0-3 (FEW)); WBC,URINE 0-5 /HPF (0-5)
[2023-12-25 06:52] LABS: BASOPHILS % (AUTO) 0.2 % (0.0-2.0); EOSINOPHILS % (AUTO) 0.4 % (0.0-4.0); HEMATOCRIT 21.8 % (36-52); HEMOGLOBIN 7.5 g/dL (12.0-18.0); LYMPHOCYTES # (AUTO) 1.1 K/uL (2.0-11.5); LYMPHOCYTES % (AUTO) 10.1 % (20.5-51.1); MEAN CORPUSCULAR HEMOGLOBIN 31 pg (27-31); MEAN CORPUSCULAR HGB CONC 34 g/dL (33-37); MEAN CORPUSCULAR VOLUME 89.6 fL (80-94); MONOCYTES # (AUTO) 0.7 K/uL (0.8-1.0); MONOCYTES % (AUTO) 6.9 % (1.7-9.3); NEUTROPHILS # (AUTO) 8.8 K/uL (1.8-7.7); NEUTROPHILS % (AUTO) 82.4 % (42.2-75.2); PLATELET COUNT (AUTO) 235 K/uL (140-450); RED BLOOD CELL COUNT(AUTO) 2.43 MIL/uL (4.20-6.10); RED CELL DISTRIBUTION WIDTH 14.4 % (11.6-13.7); WHITE BLOOD COUNT (AUTO) 10.6 K/uL (4.8-10.8)
[2023-12-25 07:41] LABS: CHLORIDE 109 mmol/L (98-107); POTASSIUM 3.5 mmol/L (3.5-5.1); SODIUM SERUM 144 mmol/L (136-145)
[2023-12-25 07:42] LABS: ANION GAP 10.7 (8-16); CALCIUM 8.7 mg/dL (8.5-10.1); CARBON DIOXIDE 27.8 mmol/L (21-32); CREATININE 1.9 mg/dL (0.6-1.3); GLUCOSE 200 mg/dL (74-106); UREA NITROGEN, BLOOD 49 mg/dL (7-18)
[2023-12-25 08:05] LABS: BILIRUBIN,DIRECT 0.2 mg/dL (0.0-0.3); TOTAL BILIRUBIN 0.6 mg/dL (0.0-1.0)
[2023-12-25 08:06] LABS: ALBUMIN 1.7 g/dL (3.4-5.0); TOTAL PROTEIN, SERUM 6.7 g/dL (6.4-8.2)
[2023-12-25] MEDS: POTASSIUM CHLORIDE 20% 40 MEQ/15 ML UDC GT ONE (11:37)
[2023-12-26] VITALS (16 sets, daily range): BP systolic 120–182; BP diastolic 55–78; PULSE 57–102; RESP 18–24; TEMP 97.5–98.9; O2SAT 94–100
[2023-12-26 06:51] LABS: BASOPHILS % (AUTO) 0.1 % (0.0-2.0); EOSINOPHILS # (AUTO) 0.1 K/uL (0-0.4); EOSINOPHILS % (AUTO) 1.3 % (0.0-4.0); HEMATOCRIT 23.1 % (36-52); HEMOGLOBIN 7.7 g/dL (12.0-18.0); LYMPHOCYTES # (AUTO) 1.1 K/uL (2.0-11.5); LYMPHOCYTES % (AUTO) 10.7 % (20.5-51.1); MEAN CORPUSCULAR HEMOGLOBIN 30 pg (27-31); MEAN CORPUSCULAR HGB CONC 33 g/dL (33-37); MEAN CORPUSCULAR VOLUME 89.4 fL (80-94); MONOCYTES # (AUTO) 0.7 K/uL (0.8-1.0); MONOCYTES % (AUTO) 6.6 % (1.7-9.3); NEUTROPHILS # (AUTO) 8.4 K/uL (1.8-7.7); NEUTROPHILS % (AUTO) 81.3 % (42.2-75.2); PLATELET COUNT (AUTO) 304 K/uL (140-450); RED BLOOD CELL COUNT(AUTO) 2.58 MIL/uL (4.20-6.10); RED CELL DISTRIBUTION WIDTH 14.3 % (11.6-13.7); WHITE BLOOD COUNT (AUTO) 10.3 K/uL (4.8-10.8)
[2023-12-26 07:14] LABS: ANION GAP 12.7 (8-16); CALCIUM 9.3 mg/dL (8.5-10.1); CHLORIDE 111 mmol/L (98-107); CREATININE 1.6 mg/dL (0.6-1.3); GLUCOSE 192 mg/dL (74-106); POTASSIUM 3.7 mmol/L (3.5-5.1); SODIUM SERUM 147 mmol/L (136-145); UREA NITROGEN, BLOOD 46 mg/dL (7-18)
[2023-12-26 07:47] LABS: ALBUMIN 1.8 g/dL (3.4-5.0); BILIRUBIN,DIRECT 0.2 mg/dL (0.0-0.3); TOTAL BILIRUBIN 0.5 mg/dL (0.0-1.0); TOTAL PROTEIN, SERUM 7.2 g/dL (6.4-8.2)
[2023-12-26] MEDS: ALBUTEROL SULFATE/IPRATROPIU 3 ML SOL IH PRN (09:15)
[2023-12-26] MEDS: CLONIDINE HYDROCHLORIDE 0.1 MG TAB PO PRN (14:54)
[2023-12-26] MEDS: DEXT 5% / NACL 0.45% 1,000 ML IV SCH (14:54)
[2023-12-27] VITALS (7 sets, daily range): BP systolic 116–180; BP diastolic 54–82; PULSE 55–83; RESP 16–20; TEMP 97.3–98.9; O2SAT 94–100
[2023-12-27] MEDS: ALBUTEROL SULFATE/IPRATROPIU 3 ML SOL IH SCH (07:18)
[2023-12-27 07:21] LABS: ANION GAP 11.7 (8-16); CALCIUM 9.2 mg/dL (8.5-10.1); CARBON DIOXIDE 27.9 mmol/L (21-32); CHLORIDE 112 mmol/L (98-107); CREATININE 1.8 mg/dL (0.6-1.3); GLUCOSE 310 mg/dL (74-106); POTASSIUM 3.6 mmol/L (3.5-5.1); SODIUM SERUM 148 mmol/L (136-145); UREA NITROGEN, BLOOD 46 mg/dL (7-18)
[2023-12-27 07:30] LABS: HEMATOCRIT 21.6 % (36-52); HEMOGLOBIN 7.3 g/dL (12.0-18.0); LYMPHOCYTES # (AUTO) 1.3 K/uL (2.0-11.5); LYMPHOCYTES % (AUTO) 13.9 % (20.5-51.1); MEAN CORPUSCULAR HEMOGLOBIN 30 pg (27-31); MEAN CORPUSCULAR HGB CONC 34 g/dL (33-37); MEAN CORPUSCULAR VOLUME 88.9 fL (80-94); MONOCYTES # (AUTO) 0.9 K/uL (0.8-1.0); MONOCYTES % (AUTO) 9.8 % (1.7-9.3); NEUTROPHILS # (AUTO) 7.3 K/uL (1.8-7.7); NEUTROPHILS % (AUTO) 76.3 % (42.2-75.2); PLATELET COUNT (AUTO) 323 K/uL (140-450); RED BLOOD CELL COUNT(AUTO) 2.42 MIL/uL (4.20-6.10); RED CELL DISTRIBUTION WIDTH 14.2 % (11.6-13.7); WHITE BLOOD COUNT (AUTO) 9.6 K/uL (4.8-10.8)
[2023-12-27] MEDS ORDERED: DEC4 PO (09:50)
[2023-12-27] MEDS ORDERED: APIX2.5 PO (09:50)
[2023-12-27] MEDS ORDERED: DEXTROSE 5% 1,000 ML IV SCH (13:35)
== END 2023-12-27 15:25 | DRG 871 ==
LOC: MED 23:09 → MTU 12-22 02:48
PROVIDERS: ADMIT Student in an Organized Health Care Education/Training Program; ATTEND Student in an Organized Health Care Education/Training Program
PROC: 5A0935A Assistance with Respiratory Ventilation, Less than 24 Consecutive Hours, High Flow/Velocity Cannula (ICD-10-PCS; principal; 2023-12-22)
PROC: XW033E5 Introduction of Remdesivir Anti-infective into Peripheral Vein, Percutaneous Approach, New Technology Group 5 (ICD-10-PCS; 2023-12-22)
PROC: 5A0935A Assistance with Respiratory Ventilation, Less than 24 Consecutive Hours, High Flow/Velocity Cannula (ICD-10-PCS; 2023-12-25)
DX: A41.9 Sepsis, unspecified organism (principal); G93.41 Metabolic encephalopathy; U07.1 COVID-19; J96.01 Acute respiratory failure with hypoxia; J15.69 Pneumonia due to other Gram-negative bacteria; J15.9 Unspecified bacterial pneumonia; N17.9 Acute kidney failure, unspecified; R65.20 Severe sepsis without septic shock; I12.9 Hypertensive chronic kidney disease with stage 1 through stage 4 chronic kidney disease, or unspecified chronic kidney disease; N18.9 Chronic kidney disease, unspecified; E11.22 Type 2 diabetes mellitus with diabetic chronic kidney disease; E83.42 Hypomagnesemia; Z86.73 Personal history of transient ischemic attack (TIA), and cerebral infarction without residual deficits; Z79.899 Other long term (current) drug therapy
CPT/HCPCS: 36415; 71045; 78582; 80048; 80053; 80076; 81001; 83605; 83735; 83880; 84100; 84484; 85025; 85379; 85610; 85730; 87040; 87081; 87086; 92526; 93005; 93970; 94640; 96365; 96367; 99291; 99292; J0456; J0692; J0696; J1650; J2270; J7060; Q0092

== ENCOUNTER → 2024-02-10 | Outpatient (CLI) | payer OTHER, MEDICAID ==
[~2024-02-10] MED LIST changes: -AMLO-3 PO; +AMLO10TA GT; +APIX2.5 PO; +BUS5 GT; +DEC4 PO; +GLIM1TAB GT; +KEP500L GT; +LOSA-272 GT; +METO50TE2 GT; +SITA50TA3 GT
== END | disposition home or self-care (01) ==
LOC: MRD 08:46
PROVIDERS: ATTEND Internal Medicine
DX: R13.10 Dysphagia, unspecified (principal)
CPT/HCPCS: 70370; 92526; 92610